=== PATIENT | male | born 1945 | race Caucasian/White ===

== ENCOUNTER 2016-09-15 06:20 | Day surgery (SDC) | payer MEDICARE, BC ==
[2016-09-12 15:33] LABS: HEMATOCRIT 40.7 % (42.0-54.0); MCH 31.2 pg (26.0-34.0); MCHC 34.4 g/dL (31.0-37.0); MCV 90.6 fL (80.0-100.0); MEAN PLATELET VOLUME 10.6 fL (7.4-10.4); RBC 4.49 10x6/uL (4.20-6.10); RDW 12.7 % (11.5-14.5); WBC 6.5 10x3/uL (4.8-10.8)
[~2016-09-15] VITALS: Ht 182.9 cm; Wt 77.1 kg
[~2016-09-15 06:20] MED LIST: BUSPAR10 MG PO; ELAVIL75 MG PO; NEXIUM20 MG PO; ULTRAM50 MG PO
[2016-09-15] MEDS ORDERED: FIBER LAXATIVE500 MG PO (06:44)
[2016-09-15 06:45] VITALS: BP 132/72; Ht 182.9 cm; Wt 77.1 kg
[2016-09-15] MEDS ORDERED: HYDROCODONE-APA1 TAB PO (10:09)
--- NOTE | 2016-09-15 15:00 | NUR ---
1205 DISCHARGE INSTRUCTINS NREVIEWED WITH PATIENT; PENDELUM EXERCISES DEMONSTRATED; VERBALIZED UNDERSTANDING
--- NOTE | 2016-09-17 15:22 | OP ---
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 PROCEDURES: 1. Arthroscopic rotator cuff repair. 2. Arthroscopic distal clavicle excision done through separate incision -- 1 cm. 3. Arthroscopic subacromial decompression, acromioplasty and bursectomy. ANESTHESIA: General. INTRAOPERATIVE COMPLICATIONS: None. SUMMARY OF PATHOLOGIC FINDINGS: Consistent with the preoperative radiographs and MRI. The patient had a very large area of calcific tendinosis at the distal aspect of the supraspinatus tendon. After debridement, left a large void which required fixation. OPERATIVE SUMMARY IN DETAIL: After obtaining the appropriate preoperative orthopedic surgery consent as well as anesthetic consultation, evaluation and clearance, the patient was brought to the operating room and placed on the operating table in supine position. After adequate general laryngeal mask was administered, the patient was placed in left lateral decubitus position. All pressure points were well padded to include down leg peroneal pad as well as axillary roll. The patient was held firmly to the operating table using the vacuum pack suction system. Right upper extremity and shoulder were then prepped and draped in routine sterile fashion. The arm was held in the [employer] traction boom at 30 degrees of flexion, 30 degrees of abduction with 10 pounds of traction laterally. Arthroscopy was established in the glenohumeral joint from a posterior portal. Anterior portal was established in the anterior safe interval. Diagnostic arthroscopy revealed the above findings. The intra-articular aspect of the shoulder was relatively normal; however, after the arthroscopy was established in the subacromial space, the anterior acromion hook was noted. [place] tissue ablation system was utilized to denude the undersurface of the acromion of all soft tissue elements and release coracoacromial ligament. A 5-0 barrel bur was then used to perform acromioplasty at the level of acromioclavicular joint. Arthroscopic anterior portal under direct arthroscopic visualization, a 1-cm of distal clavicle was excised using the 5-0 barrel bur. Lastly, the area of calcific tendinosis was identified and then an arthroscopic resector was utilized to debride it until all the calcific tendinosis was gone. At this point, the void was reapproximated with a #2 FiberTape and anchored laterally with a 5.5 SwiveLock from [employer]. Having completed this, the arthroscopy portals were closed in routine interrupted fashion using 4-0 Prolene. Sterile dressings were applied. The patient was awakened and taken to recovery room in stable condition. All final needle and sponge counts were correct. TRANSINT:[id number] Voice Confirmation ID: [id number] DOCUMENT ID: [id number] OPERATIVE REPORT [id number] EDIE ROWLAND MD, JEANIE KRUGER at 1522 CC: [id number] DICTATION DATE: 09/15/16 1140 COMMUTATOR V RING ASSEMBLER: 09/15/162111 [facility] 09/15/16 [facility] [address] [place] [address]
== END 2016-09-15 12:10 | disposition home or self-care (01) ==
LOC: D.OPS 06:20 → D.PAN 08:30 → D.OPS 08:30 → D.PAN 09:00 → D.OPS 09:25 → D.PAN 09:25 → D.OPS 12:10 → D.PAN 12:15 → D.OPS 14:15
PROVIDERS: Anesthesiology
DX: M75.101 Unspecified rotator cuff tear or rupture of right shoulder, not specified as traumatic (principal); M75.41 Impingement syndrome of right shoulder; M13.811 Other specified arthritis, right shoulder; M75.31 Calcific tendinitis of right shoulder

== ENCOUNTER 2016-09-26 11:27 | Inpatient (IN) | payer MEDICARE, BC ==
[~2016-09-26 11:27] MED LIST changes: +FIBER LAXATIVE500 MG PO; +HYDROCODONE-APA1 TAB PO
[2016-09-26 12:21] LABS: HEMOGLOBIN 13.6 g/dL (13.5-17.5); MCH 31.3 pg (26.0-34.0); PLATELET COUNT 259 10x3/uL (130-400); RBC 4.35 10x6/uL (4.20-6.10); RDW 12.3 % (11.5-14.5); WBC 30.2 10x3/uL (4.8-10.8)
[2016-09-26 12:36] LABS: LYMPHOCYTES 4 % (15-50); MONOCYTES 3 % (2-11); NEUTROPHILS 89 % (40-80); PLATELET ESTIMATE NORMAL
[2016-09-26 13:52] LABS: APPEARANCE CLEAR (CLEAR); BILIRUBIN NEGATIVE (NEGATIVE); COLOR YELLOW (YELLOW); GLUCOSE NEGATIVE (NEGATIVE); KETONE NEGATIVE (NEGATIVE); LEUKOCYTE ESTERASE NEGATIVE (NEGATIVE); NITRITE NEGATIVE (NEGATIVE); PROTEIN NEGATIVE (NEGATIVE); UROBILINOGEN NORMAL (NORMAL)
[2016-09-26 13:53] LABS: ERYTHROCYTE SEDIMENTATION RATE 25 mm/hr (0-20)
[2016-09-26 14:40] LABS: ALBUMIN 3.6 g/dL (3.4-5.0); ANION GAP 7.6 mmol/L (8-16); BILIRUBIN - TOTAL 1.12 mg/dL (0.2-1.3); CALCIUM 8.8 mg/dL (8.5-10.1); CARBON DIOXIDE 32.6 mmol/L (21.0-32.0); CREATININE - SERUM 1.2 mg/dL (0.6-1.3); POTASSIUM - SERUM 4.2 mmol/L (3.5-5.1); PROTEIN - SERUM 6.9 g/dL (6.4-8.2)
[2016-09-26] MEDS ORDERED: FLOMAX0.4 MG PO (17:09)
[2016-09-26] MEDS ORDERED: MIRALAX17 GM PO (17:09)
[2016-09-27 06:57] LABS: BASOPHILS 0.1 % (0-2); EOSINOPHILS 1.5 % (0-7); HEMATOCRIT 36.3 % (42.0-54.0); HEMOGLOBIN 12.2 g/dL (13.5-17.5); IMMATURE GRANULOCYTES 0.4 % (0-5); LYMPHOCYTES 7.4 % (15-50); MCH 30.6 pg (26.0-34.0); MCHC 33.6 g/dL (31.0-37.0); MEAN PLATELET VOLUME 10.2 fL (7.4-10.4); NEUTROPHILS 84.6 % (40-80); PLATELET COUNT 234 10x3/uL (130-400); RBC 3.99 10x6/uL (4.20-6.10); RDW 12.4 % (11.5-14.5)
[2016-09-27 06:58] LABS: WBC 16.9 10x3/uL (4.8-10.8)
[2016-09-27 07:33] LABS: ALBUMIN 2.9 g/dL (3.4-5.0); ALKALINE PHOSPHATASE 64 U/L (46-116); BILIRUBIN - TOTAL 0.84 mg/dL (0.2-1.3); CALCIUM 8.6 mg/dL (8.5-10.1); CARBON DIOXIDE 28.3 mmol/L (21.0-32.0); CHLORIDE - SERUM 105 mmol/L (98-107); GLUCOSE 101 mg/dL (74-106); POTASSIUM - SERUM 3.8 mmol/L (3.5-5.1); PROTEIN - SERUM 6.5 g/dL (6.4-8.2); SODIUM 138 mmol/L (136-145); eGFR NON AFRICAN AMERICAN 78 mL/min (90-120)
[2016-09-27 07:41] LABS: ALT (SGPT) 29 U/L (10-68); CALC OSMOLALITY 277 mosm/kg (275-300); UREA NITROGEN 17 mg/dL (7-18)
[2016-09-28 06:31] LABS: BASOPHILS 0.2 % (0-2); EOSINOPHILS 1.8 % (0-7); HEMATOCRIT 37.1 % (42.0-54.0); HEMOGLOBIN 12.6 g/dL (13.5-17.5); IMMATURE GRANULOCYTES 0.2 % (0-5); LYMPHOCYTES 7.4 % (15-50); MCH 30.8 pg (26.0-34.0); MCV 90.7 fL (80.0-100.0); MEAN PLATELET VOLUME 10.4 fL (7.4-10.4); MONOCYTES 8.5 % (2-11); NEUTROPHILS 81.9 % (40-80); PLATELET COUNT 223 10x3/uL (130-400); RBC 4.09 10x6/uL (4.20-6.10); RDW 12.5 % (11.5-14.5); WBC 12.9 10x3/uL (4.8-10.8)
[2016-09-28 06:56] LABS: ALKALINE PHOSPHATASE 66 U/L (46-116); ALT (SGPT) 30 U/L (10-68); CALC OSMOLALITY 277 mosm/kg (275-300); CALCIUM 9.3 mg/dL (8.5-10.1); CARBON DIOXIDE 27.2 mmol/L (21.0-32.0); CHLORIDE - SERUM 103 mmol/L (98-107); GLUCOSE 111 mg/dL (74-106); POTASSIUM - SERUM 4.2 mmol/L (3.5-5.1); SODIUM 139 mmol/L (136-145); UREA NITROGEN 11 mg/dL (7-18); eGFR NON AFRICAN AMERICAN 78 mL/min (90-120)
[2016-09-28] MEDS ORDERED: VIBRAMYCIN50 MG PO (13:41)
== END 2016-09-28 15:12 | disposition home or self-care (01) | DRG 179 ==
LOC: D.MS 11:27
PROVIDERS: Orthopaedic Surgery; ADMIT Family Medicine
DX: J15.6 Pneumonia due to other Gram-negative bacteria (principal); F41.9 Anxiety disorder, unspecified; M25.511 Pain in right shoulder; R79.82 Elevated C-reactive protein (CRP)

== ENCOUNTER 2017-12-08 17:09 | Emergency (ER) | payer OTHER ==
[~2017-12-08] VITALS: Ht 182.9 cm; Wt 76.9 kg
[~2017-12-08 17:09] MED LIST changes: +FLOMAX0.4 MG PO; +MIRALAX17 GM PO; +VIBRAMYCIN50 MG PO
[2017-12-08 17:22] VITALS: BP 141/63; Ht 182.9 cm; Wt 76.9 kg
[2017-12-08] MEDS ORDERED: OMEPRAZOLE20 M1 PO (17:24)
[2017-12-08 18:03] LABS: BASOPHILS 0.4 % (0-2); EOSINOPHILS 5.8 % (0-7); HEMATOCRIT 38.8 % (42.0-54.0); HEMOGLOBIN 13.6 g/dL (13.5-17.5); IMMATURE GRANULOCYTES 0.3 % (0-5); LYMPHOCYTES 23.8 % (15-50); MCH 31.2 pg (26.0-34.0); MCHC 35.1 g/dL (31.0-37.0); MEAN PLATELET VOLUME 10.1 fL (7.4-10.4); MONOCYTES 7.6 % (2-11); NEUTROPHILS 62.1 % (40-80); RBC 4.36 10x6/uL (4.20-6.10); RDW 12.3 % (11.5-14.5); WBC 6.7 10x3/uL (4.8-10.8)
[2017-12-08 18:10] LABS: PLATELET COUNT 171 10x3/uL (130-400)
[2017-12-08 18:15] LABS: INR 1.01 (0.85-1.17); PROTIME 12.9 SECONDS (11.6-15.0)
[2017-12-08 18:16] LABS: APTT 33.5 SECONDS (22.8-39.4)
[2017-12-08 18:40] LABS: GLUCOSE 107 mg/dL (74-106); UREA NITROGEN 21 mg/dL (7-18)
[2017-12-08 18:41] LABS: ALBUMIN 3.6 g/dL (3.4-5.0); ALT (SGPT) 21 U/L (10-68); BILIRUBIN - TOTAL 0.36 mg/dL (0.2-1.3); CALC OSMOLALITY 278 mosm/kg (275-300); CALCIUM 8.5 mg/dL (8.5-10.1); CARBON DIOXIDE 27.2 mmol/L (21.0-32.0); CHLORIDE - SERUM 104 mmol/L (98-107); POTASSIUM - SERUM 3.7 mmol/L (3.5-5.1); PROTEIN - SERUM 7.2 g/dL (6.4-8.2); SODIUM 138 mmol/L (136-145); eGFR NON AFRICAN AMERICAN 78 mL/min (90-120)
[2017-12-08 18:46] LABS: ALKALINE PHOSPHATASE 81 U/L (46-116)
[2017-12-08 18:52] LABS: CKMB 4.5 U/L (0.0-3.6); CREATINE KINASE 245 UL (21-232); LIPASE 184 U/L (73-393)
[2017-12-08 18:54] LABS: TROPONIN-I < 0.017 ng/mL (0.000-0.060)
== END 2017-12-08 19:21 | disposition home or self-care (01) ==
LOC: D.ER 17:09
PROVIDERS: Family Medicine
DX: R07.9 Chest pain, unspecified (principal)

== ENCOUNTER 2018-03-05 20:18 | Emergency (ER) | payer OTHER ==
[~2018-03-05] VITALS: Ht 182.9 cm; Wt 75.7 kg
[~2018-03-05 20:18] MED LIST changes: +OMEPRAZOLE20 M1 PO
[2018-03-05 20:37] VITALS: Ht 182.9 cm; Wt 75.7 kg
[2018-03-05] MEDS ORDERED: ULTRAM50 MG PO (21:37)
[2018-03-05 21:50] VITALS: BP 131/70
== END 2018-03-05 21:50 | disposition home or self-care (01) ==
LOC: D.ER 20:18
DX: S99.922A Unspecified injury of left foot, initial encounter (principal); X58.XXXA Exposure to other specified factors, initial encounter; Y93.9 Activity, unspecified; Y92.89 Other specified places as the place of occurrence of the external cause; G40.909 Epilepsy, unspecified, not intractable, without status epilepticus

== ENCOUNTER 2018-03-07 09:39 | Emergency (ER) | payer OTHER ==
[~2018-03-07] VITALS: Ht 182.9 cm; Wt 75.9 kg
[2018-03-07 09:46] VITALS: Ht 182.9 cm; Wt 75.9 kg
[2018-03-07] MEDS ORDERED: VIBRAMYCIN 100100 MG PO (10:29)
[2018-03-07] MEDS ORDERED: TORADOL10 MG PO (11:30)
[2018-03-07 12:31] LABS: BASOPHILS 0.3 % (0-2); EOSINOPHILS 5.2 % (0-7); HEMATOCRIT 39.8 % (42.0-54.0); HEMOGLOBIN 13.9 g/dL (13.5-17.5); IMMATURE GRANULOCYTES 0.2 % (0-5); LYMPHOCYTES 18.2 % (15-50); MCH 31.3 pg (26.0-34.0); MCHC 34.9 g/dL (31.0-37.0); MCV 89.6 fL (80.0-100.0); MEAN PLATELET VOLUME 9.8 fL (7.4-10.4); MONOCYTES 10.7 % (2-11); NEUTROPHILS 65.4 % (40-80); PLATELET COUNT 174 10x3/uL (130-400); RBC 4.44 10x6/uL (4.20-6.10); RDW 12.4 % (11.5-14.5); WBC 6.5 10x3/uL (4.8-10.8)
[2018-03-07 12:40] VITALS: BP 126/65
== END 2018-03-07 12:41 | disposition home or self-care (01) ==
LOC: D.ER 09:39
PROVIDERS: Family Medicine
DX: S99.922A Unspecified injury of left foot, initial encounter (principal); X58.XXXA Exposure to other specified factors, initial encounter; Y93.89 Activity, other specified; Y92.019 Unspecified place in single-family (private) house as the place of occurrence of the external cause; R23.8 Other skin changes; G40.909 Epilepsy, unspecified, not intractable, without status epilepticus